=== PATIENT | female | born 1990 | race Caucasian/White ===

== ENCOUNTER → 2017-02-15 | Outpatient (CLI) | payer OTHER ==
[2017-02-15 10:38] LABS: ASPARTATE AMINO TRANSFERASE 8 U/L (15-37); BLOOD UREA NITROGEN 13 mg/dL (7-18)
== END | disposition home or self-care (01) ==
LOC: LAB 10:03
PROVIDERS: ATTEND Internal Medicine Cardiovascular Disease
DX: Z13.89 Encounter for screening for other disorder (principal)
CPT/HCPCS: 36415; 80053; 80061; 84436; 84481; 85025

== ENCOUNTER → 2017-02-23 | Outpatient (CLI) | payer OTHER | END | disposition home or self-care (01) | LOC: CFH 08:41 | PROVIDERS: ATTEND Internal Medicine Cardiovascular Disease | DX: I08.1 Rheumatic disorders of both mitral and tricuspid valves (principal); I37.1 Nonrheumatic pulmonary valve insufficiency | CPT/HCPCS: 93306 ==

== ENCOUNTER → 2017-02-24 | Outpatient (CLI) | payer OTHER | END | disposition home or self-care (01) | LOC: LAB 09:52 | PROVIDERS: ATTEND Nurse Practitioner Family | DX: Z13.89 Encounter for screening for other disorder (principal); R00.2 Palpitations; R42 Dizziness and giddiness | CPT/HCPCS: 36415; 84443 ==

== ENCOUNTER → 2017-12-01 | Outpatient (CLI) | payer OTHER | END | disposition home or self-care (01) | LOC: LAB 16:34 | PROVIDERS: ATTEND Family Medicine | DX: R00.2 Palpitations (principal) | CPT/HCPCS: 36415; 84443 ==

== ENCOUNTER → 2018-09-25 | Outpatient (CLI) | payer OTHER ==
[2018-09-25 07:34] LABS: BASOPHILS # (AUTO) 0.03 x10^3/uL (0-0.1); BASOPHILS % (AUTO) 1 % (0-1); EOSINOPHILS # (AUTO) 0.15 x10^3/uL (0-0.4); EOSINOPHILS % (AUTO) 2 % (1-7); LYMPHOCYTES # (AUTO) 1.77 x10^3/uL (1-3.4); LYMPHOCYTES % (AUTO) 27 % (22-44); MD NO; MEAN CORPUSCULAR HEMOGLOBIN 31.8 pg (27.0-34.8); MEAN CORPUSCULAR HGB CONC 33.1 g/dL (32.4-35.8); MEAN CORPUSCULAR VOLUME 96.1 fL (80-100); MEAN PLATELET VOLUME 8.4 fL (7.4-10.4); MONOCYTES # (AUTO) 0.64 x10^3/uL (0.2-0.8); MONOCYTES % (AUTO) 10 % (2-9); NEUTROPHILS # (AUTO) 4.02 x10^3/uL (1.8-6.8); NEUTROPHILS % (AUTO) 61 % (42-75); PLATELET COUNT 240 x10^3/uL (130-400); RED BLOOD COUNT 4.37 x10^6/uL (3.82-5.3); RED CELL DISTRIBUTION WIDTH 13.5 % (9.6-15.2)
[2018-09-25 07:43] LABS: ALANINE AMINOTRANSFERASE 52 U/L (12-78); ALBUMIN 3.9 g/dL (3.4-5.0); ANION GAP 8 mmol/L (5-15); CALCIUM 8.6 mg/dL (8.5-10.1); CHLORIDE 106 mmol/L (98-107)
[2018-09-25 07:52] LABS: ALKALINE PHOSPHATASE 48 U/L (45-117); BILIRUBIN,TOTAL 0.5 mg/dL (0.2-1.0); CHOL/HDL RATIO 3.3; CHOLESTEROL, TOTAL 204 mg/dL (140-239); CREATININE 0.75 mg/dL (0.55-1.02); HDL CHOL % 30 % (28-40); HDL CHOLESTEROL (DIRECT) 61 mg/dL (40-60); LDL CHOLESTEROL,CALCULATED 128 mg/dL (54-169); LDL/HDL RATIO 2.1 (0.5-3.0); T4 (THYROXINE) 8.1 mcg/dL (4.8-13.9); TRIGLYCERIDES 73 mg/dL (50-200); VLDL CHOLESTEROL 15 mg/dL (0-25)
== END | disposition home or self-care (01) ==
LOC: LAB 07:20
PROVIDERS: ATTEND Nurse Practitioner Family
DX: I49.3 Ventricular premature depolarization (principal); I49.1 Atrial premature depolarization; R42 Dizziness and giddiness; R00.2 Palpitations
CPT/HCPCS: 36415; 80053; 80061; 84436; 84443; 84481; 85025

== ENCOUNTER 2018-12-28 13:18 | Day surgery (SDC) | payer OTHER ==
[~2018-12-28] VITALS: Ht 170.2 cm; Wt 69.1 kg
[~2018-12-28 13:18] MED LIST: METO25TA35 PO
[2018-12-28] MEDS ORDERED: LACTATED RINGERS 1,000 ML IV SCH (13:26)
[2018-12-28 13:46] VITALS: BP 130/88
[2018-12-28] MEDS ORDERED: MIDAZOLAM 1 MG/ML, 2ML ONE (15:03)
[2018-12-28] MEDS ORDERED: FENTANYL PF 250 MCG/5ML ONE (15:03)
[2018-12-28] MEDS ORDERED: ROCURONIUM 10MG/ML,5ML ONE (15:07)
[2018-12-28] MEDS ORDERED: NEOSTIGMINE 1 MG/ML, 10ML ONE (15:07)
[2018-12-28] MEDS ORDERED: ONDANSETRON 2MG/ML, 2ML ONE (15:07)
[2018-12-28] MEDS ORDERED: PROPOFOL 10 MG/ML, 20ML ONE (15:07)
[2018-12-28] MEDS ORDERED: CEFAZOLIN 1,000 MG ONE (15:07)
[2018-12-28] MEDS ORDERED: GLYCOPYRROLATE 0.2MG/1ML, 5ML ONE (15:07)
[2018-12-28] MEDS ORDERED: BUPIVACAINE/PF-EPI 0.5% 1:200K ONE (16:03)
[2018-12-28] MEDS ORDERED: SCOPOLAMINE PATCH, 1.5MG PATCH.TD72 TD ONE (16:09)
[2018-12-28] MEDS ORDERED: DEXAMETHASONE 4 MG/ML, 5ML ONE (16:15)
[2018-12-28] MEDS ORDERED: PROMETHAZINE 25 MG SUPP PR PRN (16:30)
[2018-12-28] MEDS ORDERED: HALOPERIDOL 5 MG/ML IV PRN (16:30)
[2018-12-28] MEDS ORDERED: PROMETHAZINE 12.5 MG SUPP PR PRN (16:30)
[2018-12-28] MEDS ORDERED: PROMETHAZINE 25 MG/ML, 1ML IV PRN (16:30)
[2018-12-28] MEDS ORDERED: PROMETHAZINE 25 MG/ML, 1ML IM PRN ×2 (16:30)
[2018-12-28] MEDS ORDERED: MORPHINE SULFATE 4 MG/ML, 1ML IVPush PRN ×2 (16:30→18:30)
[2018-12-28] MEDS ORDERED: LABETALOL 5 MG/ML SYRINGE IV PRN (16:30)
[2018-12-28] MEDS ORDERED: ONDANSETRON 2MG/ML, 2ML IV PRN (16:30)
[2018-12-28] MEDS ORDERED: OXYcodone 5 MG/5 ML ORAL.SOL UDC PO PRN (16:30)
[2018-12-28] MEDS ORDERED: ONDANSETRON ODT 8 MG PO PRN (16:30)
[2018-12-28] MEDS ORDERED: hydrALAzine 20 MG/ML, 1ML IV PRN (16:30)
[2018-12-28] MEDS ORDERED: MEPERIDINE/PF 25MG/0.5ML IVPush PRN (16:30)
[2018-12-28] MEDS ORDERED: OXYcodone 5 MG/5 ML ORAL.SOL UDC ONE (16:57)
[2018-12-28] MEDS ORDERED: FENTANYL PF 100 MCG/2ML ONE (16:57)
[2018-12-28] MEDS ORDERED: HYDROmorphone 1 MG/ML, 1ML ONE (16:57)
[2018-12-28] MEDS ORDERED: MEPERIDINE/PF 25MG/ML,1ML ONE (17:06)
[2018-12-28 17:13] LABS: HCG UR SG 1.002 (1.003-1.030)
[2018-12-28] MEDS: HYDROmorphone 2 MG/ML, 1ML IVPush PRN ×4 (17:15→17:38)
[2018-12-28] MEDS: FENTANYL PF 100 MCG/2ML IV PRN ×2 (17:16→17:23)
[2018-12-28] MEDS ORDERED: ONDANSETRON 2MG/ML, 2ML IVPush PRN (18:30)
== END 2018-12-28 19:56 | disposition home or self-care (01) ==
LOC: OR 13:18 → 4NOR 18:01 → OR 19:56
PROVIDERS: ATTEND Surgery
DX: K41.30 Unilateral femoral hernia, with obstruction, without gangrene, not specified as recurrent (principal); Z91.040 Latex allergy status
CPT/HCPCS: 49553; 81025; J0690; J1100; J1170; J2175; J2250; J2405; J2704; J2710; J3010; J3490; J7120; G0378

== ENCOUNTER 2019-05-02 10:50 | Day surgery (SDC) | payer OTHER ==
[~2019-05-02] VITALS: Ht 170.2 cm; Wt 70.0 kg
[2019-05-02 11:50] VITALS: BP 117/78
[2019-05-02] MEDS ORDERED: LACTATED RINGERS 1,000 ML IV SCH (11:55)
[2019-05-02] MEDS ORDERED: SCOPOLAMINE PATCH, 1.5MG PATCH.TD72 TD ONE (12:00)
[2019-05-02] MEDS ORDERED: GABAPENTIN 300 MG CAPSULE PO ONE (12:00)
[2019-05-02] MEDS ORDERED: ACETAMINOPHEN 500 MG TABLET PO ONE (12:00)
[2019-05-02 12:11] LABS: HCG UR SG 1.024 (1.003-1.030)
[2019-05-02] MEDS ORDERED: FENTANYL PF 250 MCG/5ML ONE (12:24)
[2019-05-02] MEDS ORDERED: MIDAZOLAM 1 MG/ML, 2ML ONE (12:24)
[2019-05-02] MEDS ORDERED: NEOSTIGMINE 1 MG/ML, 10ML ONE (12:28)
[2019-05-02] MEDS ORDERED: ONDANSETRON 2MG/ML, 2ML ONE (12:28)
[2019-05-02] MEDS ORDERED: DEXAMETHASONE 4 MG/ML, 1ML ONE (12:28)
[2019-05-02] MEDS ORDERED: GLYCOPYRROLATE 0.2MG/1ML, 5ML ONE (12:28)
[2019-05-02] MEDS ORDERED: ROCURONIUM 10MG/ML,5ML ONE (12:28)
[2019-05-02] MEDS ORDERED: PROPOFOL 10 MG/ML, 20ML ONE (12:28)
[2019-05-02] MEDS ORDERED: CEFAZOLIN 1,000 MG ONE (12:28)
[2019-05-02] MEDS ORDERED: BUPIVACAINE/PF 0.25% ONE (13:07)
[2019-05-02] MEDS ORDERED: INDIGO CARMINE 0.8%, 5ML ONE (13:12)
[2019-05-02] MEDS ORDERED: KETOROLAC 30 MG/1 ML ONE (13:27)
[2019-05-02] MEDS ORDERED: PROMETHAZINE 25 MG SUPP PR PRN (13:30)
[2019-05-02] MEDS ORDERED: MORPHINE SULFATE 4 MG/ML, 1ML IVPush PRN (13:30)
[2019-05-02] MEDS ORDERED: PROMETHAZINE 25 MG/ML, 1ML IM PRN ×2 (13:30)
[2019-05-02] MEDS ORDERED: MEPERIDINE/PF 25MG/0.5ML IVPush PRN (13:30)
[2019-05-02] MEDS ORDERED: PROMETHAZINE 25 MG/ML, 1ML IV PRN (13:30)
[2019-05-02] MEDS ORDERED: ONDANSETRON 2MG/ML, 2ML IV PRN (13:30)
[2019-05-02] MEDS ORDERED: OXYcodone 5 MG/5 ML ORAL.SOL UDC PO PRN (13:30)
[2019-05-02] MEDS ORDERED: PROMETHAZINE 12.5 MG SUPP PR PRN (13:30)
[2019-05-02] MEDS ORDERED: HALOPERIDOL 5 MG/ML IV PRN (13:30)
[2019-05-02] MEDS ORDERED: HYDROmorphone 2 MG/ML, 1ML IVPush PRN (13:30)
[2019-05-02] MEDS ORDERED: hydrALAzine 20 MG/ML, 1ML IV PRN (13:30)
[2019-05-02] MEDS ORDERED: LABETALOL 5MG/ML, 20ML IV PRN (13:30)
[2019-05-02] MEDS ORDERED: ONDANSETRON ODT 8 MG PO PRN (13:30)
[2019-05-02] MEDS ORDERED: OXYcodone 5 MG/5 ML ORAL.SOL UDC ONE (14:50)
[2019-05-02] MEDS ORDERED: HYDROmorphone 2 MG/ML, 1ML ONE (14:50)
[2019-05-02] MEDS ORDERED: FENTANYL PF 100 MCG/2ML ONE (14:50)
[2019-05-02] MEDS: FENTANYL PF 100 MCG/2ML IV PRN ×3 (14:55→15:17)
== END 2019-05-02 16:48 | disposition home or self-care (01) ==
LOC: OUT 10:50
PROVIDERS: ATTEND Specialist
DX: N83.292 Other ovarian cyst, left side (principal); N80.3 Endometriosis of pelvic peritoneum; N80.0 Endometriosis of uterus; N73.6 Female pelvic peritoneal adhesions (postinfective); R00.0 Tachycardia, unspecified; Z79.899 Other long term (current) drug therapy; Z98.890 Other specified postprocedural states; Z83.3 Family history of diabetes mellitus
CPT/HCPCS: 49322; 58662; 81025; J0690; J1100; J1885; J2250; J2405; J2704; J2710; J3010; J3490; J7120

== ENCOUNTER 2021-01-24 07:13 | Outpatient (CLI) | payer OTHER ==
[~2021-01-24] VITALS: Ht 167.6 cm; Wt 77.2 kg
[2021-01-24 07:43] VITALS: BP 118/78
== END 2021-01-24 11:01 | disposition home or self-care (01) ==
LOC: LDOP 07:13
PROVIDERS: ATTEND Obstetrics & Gynecology
DX: O36.8130 Decreased fetal movements, third trimester, not applicable or unspecified (principal); O26.853 Spotting complicating pregnancy, third trimester; Z3A.39 39 weeks gestation of pregnancy
CPT/HCPCS: 59025

== ENCOUNTER 2021-01-24 15:04 | Inpatient (IN) | payer OTHER ==
[~2021-01-24] VITALS: Ht 170.2 cm; Wt 79.0 kg
[2021-01-24] MEDS ORDERED: METOCLOPRAMIDE 5 MG/ML, 2ML IVPush PRN (15:30)
[2021-01-24] MEDS ORDERED: FENTANYL PF 100 MCG/2ML IVPush PRN (15:30)
[2021-01-24] MEDS ORDERED: ONDANSETRON 2MG/ML, 2ML IVPush PRN (15:30)
[2021-01-24] MEDS ORDERED: TERBUTALINE 1 MG/ML, 1ML IVPush PRN (15:30)
[2021-01-24] MEDS ORDERED: SODIUM CITRATE/CITRIC ACID 30 ML UDC PO PRN (15:30)
[2021-01-24] MEDS ORDERED: OXYTOCIN 30U/ 0.9% NaCL 500ML 500 ML IV PRN ×2 (15:30→17:30)
[2021-01-24] MEDS ORDERED: FENTANYL PF 100 MCG/2ML IV PRN (15:30)
[2021-01-24] MEDS ORDERED: OXYTOCIN 30U/ 0.9% NaCL 500ML 500 ML IV ONE (15:30)
[2021-01-24] MEDS: LACTATED RINGERS 1,000 ML IV SCH ×4 (15:34→17:57)
[2021-01-24] MEDS ORDERED: TERBUTALINE 1 MG/ML, 1ML SQ PRN (16:00)
[2021-01-24] MEDS ORDERED: D5%-LACTATED RINGERS 1,000 ML IV SCH (16:00)
[2021-01-24 16:07] LABS: BASOPHILS % (AUTO) 0 % (0-1); EOSINOPHILS % (AUTO) 0 % (1-7); LYMPHOCYTES % (AUTO) 9 % (22-44); MEAN CORPUSCULAR HEMOGLOBIN 33.2 pg (27.0-34.8); MEAN CORPUSCULAR HGB CONC 33.9 g/dL (32.4-35.8); MEAN PLATELET VOLUME 8.5 fL (7.4-10.4); MONOCYTES % (AUTO) 7 % (2-9); NEUTROPHILS % (AUTO) 84 % (42-75); PLATELET COUNT 239 x10^3/uL (130-400); RED CELL DISTRIBUTION WIDTH 14.7 % (9.6-15.2)
[2021-01-24 16:08] VITALS: BP 109/69
[2021-01-24 16:09] LABS: MD NO
[2021-01-24] MEDS ORDERED: NEWBORN KIT ONE (16:26)
[2021-01-24] MEDS ORDERED: LACTATED RINGERS 1,000 ML IVBOLUS PRN (16:30)
[2021-01-24] MEDS ORDERED: EPHEDRINE 50 MG/ML, 1ML IVPush PRN (16:30)
[2021-01-24] MEDS ORDERED: FENTANYL/BUPIV./NS/PF 250 ML EPIDCONT SCH (16:30)
[2021-01-24] MEDS ORDERED: NALOXONE 0.4 MG/ML, 1ML IVPush PRN (16:30)
[2021-01-24] MEDS ORDERED: FENTANYL/BUPIV./NS/PF 250 ML EPIDCONT ONE (16:31)
[2021-01-24] MEDS ORDERED: BUPIVACAINE 0.25% ONE (16:31)
[2021-01-24] MEDS ORDERED: METOPROLOL SUCCINATE 25 MG TAB.ER.24H PO SCH (18:30)
[2021-01-24] MEDS ORDERED: METOPROLOL 1 MG/ML, 5ML IVPush ONE (18:30)
[2021-01-24] MEDS ORDERED: SODIUM CITRATE/CITRIC ACID 15 ML UDC ONE (19:29)
[2021-01-24 20:27] VITALS: BP 100/58
[2021-01-25] MEDS ORDERED: IBUPROFEN 800 MG TABLET PO PRN
[2021-01-25] MEDS ORDERED: HYDROcodone/APAP 5/325 TABLET PO PRN
[2021-01-25] MEDS ORDERED: ONDANSETRON 2MG/ML, 2ML IV PRN
[2021-01-25] MEDS ORDERED: BISACODYL 10 MG SUPP PR PRN
[2021-01-25] MEDS ORDERED: MISOPROSTOL 200 MCG TABLET PR PRN
[2021-01-25] MEDS ORDERED: IBUPROFEN 200 MG TABLET PO PRN
[2021-01-25] MEDS ORDERED: RHOGAM FROM BLOOD BANK 1 NOTE EA IM/IV ONE
[2021-01-25] MEDS ORDERED: ACETAMINOPHEN 325 MG TABLET PO PRN
[2021-01-25] MEDS: LACTATED RINGERS 1,000 ML IV SCH (00:30)
[2021-01-25 01:00] VITALS: BP 118/75
[2021-01-25 04:00] VITALS: BP 120/68
[2021-01-25 07:05] LABS: BASOPHILS % (AUTO) 0 % (0-1); EOSINOPHILS % (AUTO) 0 % (1-7); LYMPHOCYTES % (AUTO) 10 % (22-44); MEAN CORPUSCULAR HEMOGLOBIN 32.5 pg (27.0-34.8); MEAN CORPUSCULAR HGB CONC 33.3 g/dL (32.4-35.8); MEAN PLATELET VOLUME 8.8 fL (7.4-10.4); MONOCYTES % (AUTO) 6 % (2-9); NEUTROPHILS % (AUTO) 84 % (42-75); PLATELET COUNT 231 x10^3/uL (130-400); RED BLOOD COUNT 3.66 x10^6/uL (3.82-5.3); RED CELL DISTRIBUTION WIDTH 14.9 % (9.6-15.2)
[2021-01-25 07:06] LABS: MD NO
[2021-01-25 07:20] VITALS: BP 102/62
[2021-01-25] MEDS: PRENATAL VIT/IRON/FA 1 EACH TABLET PO SCH (09:34)
[2021-01-25] MEDS: IBUPROFEN 600 MG TABLET PO PRN ×2 (09:34→17:50)
[2021-01-25] MEDS: DOCUSATE 100 MG CAPSULE PO PRN ×2 (09:34→21:55)
[2021-01-25] MEDS: OXYTOCIN 30U/ 0.9% NaCL 500ML 500 ML IV SCH ×3 (10:00→20:00)
[2021-01-25 12:34] VITALS: BP 111/73
[2021-01-25 18:03] VITALS: BP 105/62
[2021-01-25 19:50] VITALS: BP 107/68
[2021-01-25] MEDS: OXYcodone/APAP 5/325MG TABLET PO PRN (22:18)
[2021-01-26 00:01] VITALS: BP 101/67
[2021-01-26] MEDS: IBUPROFEN 600 MG TABLET PO PRN (05:26)
[2021-01-26] MEDS: OXYTOCIN 30U/ 0.9% NaCL 500ML 500 ML IV SCH (06:00)
[2021-01-26] MEDS: DOCUSATE 100 MG CAPSULE PO PRN (07:54)
[2021-01-26] MEDS: PRENATAL VIT/IRON/FA 1 EACH TABLET PO SCH (07:54)
[2021-01-26 08:02] VITALS: BP 109/62
[2021-01-26] MEDS ORDERED: IBUP-1223 PO (08:29)
[2021-01-26] MEDS ORDERED: DOCU100C33 PO (08:29)
[2021-01-26] MEDS: OXYcodone/APAP 5/325MG TABLET PO PRN (10:43)
== END 2021-01-26 11:32 | disposition home or self-care (01) | DRG 807 ==
LOC: LDOP 15:04 → LDIP 15:34 → 2NW 01-25 01:01
PROVIDERS: ADMIT Obstetrics & Gynecology; ATTEND Obstetrics & Gynecology
PROC: 10E0XZZ Delivery of Products of Conception, External Approach (ICD-10-PCS; principal; 2021-01-24)
PROC: 0HQ9XZZ Repair Perineum Skin, External Approach (ICD-10-PCS; 2021-01-24)
DX: O26.893 Other specified pregnancy related conditions, third trimester (principal); Z37.0 Single live birth; Z20.822 Contact with and (suspected) exposure to COVID-19; O70.0 First degree perineal laceration during delivery; R00.0 Tachycardia, unspecified; O75.4 Other complications of obstetric surgery and procedures; R00.2 Palpitations; Z80.3 Family history of malignant neoplasm of breast; Z67.11 Type A blood, Rh negative; Z3A.39 39 weeks gestation of pregnancy; Z83.3 Family history of diabetes mellitus
CPT/HCPCS: 36415; 85025; 86592; 86850; 86900; 87635; 93005; G0378; J2405; J3010; J2590; J7120

== ENCOUNTER 2021-05-23 07:24 | Emergency (ER) | payer OTHER ==
[~2021-05-23] VITALS: Ht 167.6 cm; Wt 69.0 kg
[~2021-05-23 07:24] MED LIST changes: +DOCU100C33 PO; +IBUP-1223 PO
[2021-05-23 07:43] VITALS: BP 119/81
--- NOTE | 2021-05-23 07:48 | NUR ---
ICE PACK APPLIED IN TRIAGE
--- NOTE | 2021-05-23 07:58 | NUR ---
DATA BASE ADMINISTRATOR: PT AMBULATORY TO ROOM FROM LOBBY.
--- NOTE | 2021-05-23 08:15 | NUR ---
RAD AT BEDSIDE.
--- NOTE | 2021-05-23 09:30 | NUR ---
Patient given discharge instructions and they have confirmed that they understand the instructions. Patient ambulatory with steady gait.
== END 2021-05-23 09:31 | disposition home or self-care (01) ==
LOC: ED 08:22
DX: S62.644A Nondisplaced fracture of proximal phalanx of right ring finger, initial encounter for closed fracture (principal); W01.0XXA Fall on same level from slipping, tripping and stumbling without subsequent striking against object, initial encounter; Y93.89 Activity, other specified; Y92.009 Unspecified place in unspecified non-institutional (private) residence as the place of occurrence of the external cause; Y99.8 Other external cause status
CPT/HCPCS: 29130; 99283